=== PATIENT | male | born 1990 | race Caucasian/White ===

== ENCOUNTER 2016-06-28 10:01 | Emergency (ER) | payer SELFPAY ==
[~2016-06-28] VITALS: Ht 182.9 cm; Wt 104.3 kg
[2016-06-28] MEDS ORDERED: NS IV 1000 ML 1,000 ML IV ONE (10:19)
[2016-06-28] MEDS ORDERED: ONDANSETRON 4 MG/2 ML (SDV) Z0FRAN IVP ONE ×2 (10:30→12:30)
[2016-06-28] MEDS ORDERED: KETOROLAC 30 MG/ML VIAL IVP ONE (10:30)
[2016-06-28 10:49] LABS: BASOPHILS % (AUTO) 0 % (0-10); EOSINOPHILS # (AUTO) 0.3 10^3/uL (0.0-0.3); EOSINOPHILS % (AUTO) 3 % (0-10); LYMPHOCYTES # (AUTO) 2.7 X 10^3 (1.0-4.0); LYMPHOCYTES % (AUTO) 28 % (12-44); MEAN CORPUSCULAR HEMOGLOBIN 31 PG (25-34); MEAN CORPUSCULAR HGB CONC 34 G/DL (32-36); MEAN CORPUSCULAR VOLUME 91 FL (80-99); MEAN PLATELET VOLUME 11.7 FL (7.4-10.4); MONOCYTES # (AUTO) 0.9 X 10^3 (0.0-1.0); MONOCYTES % (AUTO) 9 % (0-12); NEUTROPHILS # (AUTO) 5.9 X 10^3 (1.8-7.8); NEUTROPHILS % (AUTO) 60 % (42-75); PLATELET COUNT 251 10^3/uL (130-400); RED BLOOD COUNT 5.07 10^6/uL (4.35-5.85); RED CELL DISTRIBUTION WIDTH 12.9 % (10.0-14.5); WHITE BLOOD COUNT 9.8 10^3/uL (4.3-11.0)
--- NOTE | 2016-06-28 10:51 | ED Abdominal Pain ---
General Chief Complaint: Abdominal/GI Problems Stated Complaint: LEFT FLANK PAIN Nursing Triage Note: pt reports lower back pain that radiates to groin though testicles. Sepsis Screen: No Definite Risk Source of Information: Patient Exam Limitations: No Limitations History of Present Illness Time Seen By Provider: 10:03 Initial Comments This 26-year-old gentleman presents to the emergency room in distress due to left flank and back pain that radiates down through the left abdomen toward the testicle. This is accompanied by nausea, vomiting, and diaphoresis. Symptoms started shortly before presentation. Allergies and Home Medications Allergies Coded Allergies: No Known Drug Allergies (Unverified , 06/28/16) Home Medications No Active Prescriptions or Reported Meds Review of Systems Constitutional: see HPI, diaphoresis EENTM: No Symptoms Reported Respiratory: No Symptoms Reported Cardiovascular: No Symptoms Reported Gastrointestinal: See HPI Genitourinary: See HPI Musculoskeletal: no symptoms reported Skin: no symptoms reported Psychiatric/Neurological: No Symptoms Reported Endocrine: No Symptoms Reported Hematologic/Lymphatic: No Symptoms Reported Past Homevsm-Mvgqrc-Bjhvqa Hx Patient Social History Alcohol Use: Occasionally Uses Recreational Drug Use: Yes (THC) Smoking Status: Current Everyday Smoker Type Used: Cigarettes Recent Foreign Travel: No Contact w/Someone Who Travel: No Recent Infectious Disease Expo: No Recent Hopitalizations: No Seasonal Allergies Seasonal Allergies: No Surgeries HX Surgeries: Yes (axillary cyst resection) Surgeries: Testicular (torsion at a young age) Respiratory Hx Respiratory Disorders: No Cardiovascular Hx Cardiac Disorders: No Neurological Hx Neurological Disorders: No Reproductive System Hx Reproductive Disorders: No Genitourinary Hx Genitourinary Disorders: No Gastrointestinal Hx Gastrointestinal Disorders: No Musculoskeletal Hx Musculoskeletal Disorders: No Endocrine Hx Endocrine Disorders: No HEENT HX ENT Disorders: No Cancer Hx Cancer: No Psychosocial Hx Psychiatric Problems: No Integumentary HX Skin/Integumentary Disorder: No Blood Transfusions Hx Blood Disorders: No Physical Exam Vital Signs VS - Last 72 Hours, by Label 06/28/16 10:17 Temp 96.6 Pulse 55 Resp 22 B/P (MAP) 134/92 Pulse Ox 93 O2 Delivery Room Air Capillary Refill : Less Than 3 Seconds General Appearance: WD/WN, moderate distress HEENT: PERRL/EOMI, normal ENT inspection Respiratory: lungs clear, normal breath sounds, no respiratory distress, no accessory muscle use Cardiovascular: regular rate, rhythm, no edema, no murmur Gastrointestinal: normal bowel sounds, soft, tenderness (throughout the left abdomen) Extremities: normal inspection, no pedal edema Male: normal genitalia, no hernia, No erythema, inguinal tenderness (slight left tenderness without evidence of hernia), No testicular tenderness 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, no motor/sensory deficits, alert, normal mood/affect, oriented x 3 Skin: normal color, diaphoresis Progress/Results/Core Measures Results/Orders Lab Results Laboratory Tests Test 06/28/16 10:35 06/28/16 11:04 Range/Units White Blood Count 9.8 4.3-11.0 10^3/uL Red Blood Count 5.07 4.35-5.85 10^6/uL Hemoglobin 15.8 13.3-17.7 G/DL Hematocrit 46 40-54 % Mean Corpuscular Volume 91 80-99 FL Mean Corpuscular Hemoglobin 31 25-34 PG Mean Corpuscular Hemoglobin Concent 34 32-36 G/DL Red Cell Distribution Width 12.9 10.0-14.5 % Platelet Count 251 130-400 10^3/uL Mean Platelet Volume 11.7 H 7.4-10.4 FL Neutrophils (%) (Auto) 60 42-75 % Lymphocytes (%) (Auto) 28 12-44 % Monocytes (%) (Auto) 9 0-12 % Eosinophils (%) (Auto) 3 0-10 % Basophils (%) (Auto) 0 0-10 % Neutrophils # (Auto) 5.9 1.8-7.8 X 10^3 Lymphocytes # (Auto) 2.7 1.0-4.0 X 10^3 Monocytes # (Auto) 0.9 0.0-1.0 X 10^3 Eosinophils # (Auto) 0.3 0.0-0.3 10^3/uL Basophils # (Auto) 0.0 0.0-0.1 10^3/uL Sodium Level 142 135-145 MMOL/L Potassium Level 3.4 L 3.6-5.0 MMOL/L Chloride Level 111 H 98-107 MMOL/L Carbon Dioxide Level 18 L 21-32 MMOL/L Anion Gap 13 5-14 MMOL/L Blood Urea Nitrogen 12 7-18 MG/DL Creatinine 1.06 0.60-1.30 MG/DL Estimat Glomerular Filtration Rate > 60 BUN/Creatinine Ratio 11 Glucose Level 115 H 70-105 MG/DL Calcium Level 8.9 8.5-10.1 MG/DL Total Bilirubin 0.6 0.1-1.0 MG/DL Aspartate Amino Transf (AST/SGOT) 14 5-34 U/L Alanine Aminotransferase (ALT/SGPT) 14 0-55 U/L Alkaline Phosphatase 89 40-136 U/L Total Protein 6.6 6.4-8.2 G/DL Albumin 4.3 3.2-4.5 G/DL Lipase 24 8-78 U/L Urine Color MEHDI H Urine Clarity CLEAR Urine pH 6 5-9 Urine Specific [place] 1.025 H 1.016-1.022 Urine Protein 2+ H NEGATIVE Urine Glucose (UA) NEGATIVE NEGATIVE Urine Ketones NEGATIVE NEGATIVE Urine Nitrite NEGATIVE NEGATIVE Urine Bilirubin NEGATIVE NEGATIVE Urine Urobilinogen NORMAL NORMAL MG/DL Urine Leukocyte Esterase 1+ H NEGATIVE Urine RBC (Auto) 5+ H NEGATIVE Urine RBC 50-100 H /HPF Urine WBC 0-2 /HPF Urine Squamous Epithelial Cells RARE /HPF Urine Crystals NONE /LPF Urine Bacteria NEGATIVE /HPF Urine Casts NONE /LPF Urine Mucus MODERATE H /LPF Urine Culture Indicated NO My Orders Orders - BETZAIDA ENGLISH MD Ua Culture If Indicated (06/28/16 10:03) Cbc With Automated Diff (06/28/16 10:19) Comprehensive Metabolic Panel (06/28/16 10:19) Lipase (06/28/16 10:19) Saline Lock/Iv-Start (06/28/16 10:19) Ns Iv 1000 Ml (Sodium Chloride 0.9%) (06/28/16 10:19) Ondansetron Injection (Zofran Injectio (06/28/16 10:30) Ketorolac Injection (Toradol Injection) (06/28/16 10:30) Ct Abd/Pelvis Wo(Kidney Stone) (06/28/16 11:27) Abdomen/Kub 1view (06/28/16 12:26) Fentanyl Injection (Sublimaze Injection (06/28/16 12:30) Oxycodone/Apap 5/325mg Tablet (Percocet (06/28/16 12:30) Ondansetron Injection (Zofran Injectio (06/28/16 12:30) Medications Given in ED Current Medications Medications Dose Ordered Sig/Mayo Route Start Time Stop Time Status Last Admin Dose Admin Fentanyl Citrate 50 mcg ONCE ONCE IVP 06/28/16 12:30 06/28/16 12:31 DC 06/28/16 12:31 50 MCG Ketorolac Tromethamine 30 mg ONCE ONCE IVP 06/28/16 10:30 06/28/16 10:31 DC 06/28/16 10:27 30 MG Ondansetron HCl 4 mg ONCE ONCE IVP 06/28/16 12:30 06/28/16 12:31 DC 06/28/16 12:31 4 MG Ondansetron HCl 8 mg ONCE ONCE IVP 06/28/16 10:30 06/28/16 10:31 DC 06/28/16 10:27 8 MG Oxycodone/ Acetaminophen 1 tab ONCE ONCE PO 06/28/16 12:30 06/28/16 12:31 DC 06/28/16 12:31 1 TAB Sodium Chloride 1,000 ml @ 0 mls/hr Q0M ONCE IV 06/28/16 10:19 06/28/16 10:22 DC 06/28/16 10:28 0 MLS/HR Vital Signs/I&O Vital Sign - Last 12Hours 06/28/16 10:17 Temp 96.6 Pulse 55 Resp 22 B/P (MAP) 134/92 Pulse Ox 93 O2 Delivery Room Air Blood Pressure Mean: 106 Progress Note #1: Time: 10:58 Progress Note Patient is feeling much better after Zofran 8 mg IV and Toradol 30 mg IV. IV fluids are infusing. UA is still pending. Further workup will be based on UA results. Progress Note #2: Time: 12:40 Progress Note Ureteral stone was identified in the left UVJ. Patient's pain began to rebound. Fentanyl and Percocet were administered for further pain management. Another dose of Zofran was also administered for rebound nausea. A strainer was dispensed for the patient and discharge instructions were discussed. Diagnostic Imaging Diagonstic Imaging: CT Plain Films/CT/US/NM/MRI: abdomen, pelvis Comments CT abdomen and pelvis viewed by me and report reviewed. See report below: NAME: PAUL CHINO [facility] REC#: [id number] PT STATUS: REG ER : 1990 PHYSICIAN: BETZAIDA ENGLISH MD ADMIT DATE: 06/28/16/ER Draft Date of Exam:06/28/16 CT ABD/PELVIS WO(KIDNEY STONE) PROCEDURE: CT urinary tract, rule out kidney stone. TECHNIQUE: Multiple contiguous axial images were obtained through the abdomen and pelvis without the use of intravenous contrast. INDICATION: Left flank pain since earlier in the morning. Radiation into the testicles. History of prior testicle surgery. CORRELATION STUDY: None FINDINGS: There is moderate left-sided hydroureteronephrosis. This appears be owing to a small 2 mm stone in the distal aspect left ureter, approximately 1 cm proximal to ureterovesical junction. There is presence of periureteric stranding. Left kidney slightly engorged. Additional nonobstructing left renal stones present. Right kidney and collecting system unremarkable. Unenhanced liver, gallbladder, pancreas, spleen and adrenal glands unremarkable. Abdominal aorta normal in contour. Gastrointestinal tract with mild severity fecal retention. No obstruction or inflammation. Appendix is slightly thickwalled but demonstrates no other additional inflammatory type changes. Urinary bladder is relatively decompressed. Calcification midline at prostate gland. Lung bases clear. IMPRESSION: 1. Moderate left-sided obstructive uropathy owing to an approximately 2 mm stone distal left ureter. Periureteric stranding also present possibility of superimposed urinary tract infection not excluded. Additional nonobstructing left renal stone is present. Dictated on workstation # [id number] Dict: 06/28/16 1210 Trans: 06/28/16 1221 [id number] Interpreted by: CARON MCNAMARA DO Departure Impression Impression: Primary Impression: Left ureteral stone Additional Impressions: Obstructive uropathy Nausea and vomiting Qualified Codes: R11.2 - Nausea with vomiting, unspecified Disposition: 01 HOME, SELF-CARE Condition: Improved Departure-Patient Inst. Decision time for Depature: 12:15 Referrals: NO,LOCAL PHYSICIAN (PCP/Family) Primary Care Physician Patient Instructions: Kidney Stones in Adults Add. Discharge Instructions: Drink plenty of clear liquids. You may use Zofran (ondansetron) as prescribed for nausea. Use Percocet as prescribed for pain. Do not drive or operate machinery on Percocet. Follow-up with your primary care provider soon as possible. Strain your urine and bring any stones collected to your follow-up appointment. Return to emergency room if symptoms worsen, especially if you develop fever. All discharge instructions reviewed with patient and/or family. Voiced understanding. Scripts Ondansetron (Zofran Odt) 4 Mg Tab.rapdis 4 MG PO Q4H Y for NAUSEA-1ST LINE, #10 TAB 1 Refill Prov: BETZAIDA ENGLISH MD 06/28/16 Oxycodone HCl/Acetaminophen (Percocet 5-325 mg Tablet) 1 Each Tablet 1-2 EACH PO Q6H Y for PAIN, #14 TAB Prov: BETZAIDA ENGLISH MD 06/28/16 BETZAIDA ENGLISH MD Jun 28, 2016 10:50
[2016-06-28 11:08] LABS: ALANINE AMINOTRANSFERASE 14 U/L (0-55); ALBUMIN 4.3 G/DL (3.2-4.5); ANION GAP 13 MMOL/L (5-14); ASPARTATE AMINO TRANSFERASE 14 U/L (5-34); BILIRUBIN,TOTAL 0.6 MG/DL (0.1-1.0); BLOOD UREA NITROGEN 12 MG/DL (7-18); BUN/CREATININE RATIO 11; CALCIUM 8.9 MG/DL (8.5-10.1); CARBON DIOXIDE 18 MMOL/L (21-32); CHLORIDE 111 MMOL/L (98-107); CREATININE SERUM 1.06 MG/DL (0.60-1.30); GFR ESTIMATED > 60; GLUCOSE 115 MG/DL (70-105); LIPASE 24 U/L (8-78); POTASSIUM 3.4 MMOL/L (3.6-5.0); SODIUM 142 MMOL/L (135-145); TOTAL PROTEIN 6.6 G/DL (6.4-8.2)
[2016-06-28 11:11] LABS: BILIRUBIN,URINE NEGATIVE (NEGATIVE); KETONES,URINE NEGATIVE (NEGATIVE); LEUKOCYTE ESTERASE ,URINE 1+ (NEGATIVE); NITRITE,URINE NEGATIVE (NEGATIVE); PH,URINE 6 (5-9); PROTEIN,URINE 2+ (NEGATIVE); UROBILINOGEN,URINE NORMAL (NORMAL)
[2016-06-28 11:20] LABS: SQUAMOUS EPITHELIAL CELL,UR RARE /HPF; WBC,URINE 0-2 /HPF
--- NOTE | 2016-06-28 12:21 | Diagnostic Imaging Report ---
PROCEDURE: CT urinary tract, rule out kidney stone. TECHNIQUE: Multiple contiguous axial images were obtained through the abdomen and pelvis without the use of intravenous contrast. INDICATION: Left flank pain since earlier in the morning. Radiation into the testicles. History of prior testicle surgery. CORRELATION STUDY: None FINDINGS: There is moderate left-sided hydroureteronephrosis. This appears be owing to a small 2 mm stone in the distal aspect left ureter, approximately 1 cm proximal to ureterovesical junction. There is presence of periureteric stranding. Left kidney slightly engorged. Additional nonobstructing left renal stones present. Right kidney and collecting system unremarkable. Unenhanced liver, gallbladder, pancreas, spleen and adrenal glands unremarkable. Abdominal aorta normal in contour. Gastrointestinal tract with mild severity fecal retention. No obstruction or inflammation. Appendix is slightly thickwalled but demonstrates no other additional inflammatory type changes. Urinary bladder is relatively decompressed. Calcification midline at prostate gland. Lung bases clear. IMPRESSION: 1. Moderate left-sided obstructive uropathy owing to an approximately 2 mm stone distal left ureter. Periureteric stranding also present possibility of superimposed urinary tract infection not excluded. Additional nonobstructing left renal stone is present. Dictated by: Dictated on workstation # [id number]
[2016-06-28] MEDS ORDERED: oxyCODONE/APAP 5/325MG (PERCOCET 5) TABLET PO ONE (12:30)
[2016-06-28] MEDS ORDERED: fentaNYL INJECTION 100 MCG/2 ML AMP IVP ONE (12:30)
[2016-06-28] MEDS ORDERED: OXYC-197 PO (12:40)
[2016-06-28] MEDS ORDERED: ONDA4TAB8 PO (12:40)
[2016-06-28 12:49] VITALS: BP 124/99
--- NOTE | 2016-06-28 13:11 | Diagnostic Imaging Report ---
INDICATION: Nephrolithiasis. TECHNIQUE: Single supine view of the abdomen 12:56 PM. CORRELATION STUDY: Renal colic CT 06/28/2016. FINDINGS: The patient's known small distal left ureteral stone cannot be well appreciated on radiograph imaging. Tiny densities over the midline lower pelvis likely reflective of prostate calcifications. There is mild/ moderate severity fecal retention. No bowel obstruction. Spina bifida occulta defect at the S1 level. Mild leftward curvature of the lumbar spine. IMPRESSION: The known distal left ureteral stone cannot be well appreciated on radiograph of the abdomen. Dictated by: Dictated on workstation # [id number]
--- OUTSIDE RECORDS SUMMARY | 2016-07-30 16:55 | XMS REPORT | Continuity of Care Document ---
Author Author [facility] Address Unknown Phone Unavailable Allergies Medications Problems Date Dx Coded Attending Type Code Diagnosis Diagnosed By 02/05/2014 AMBER SOLIS MD 465.9 UPPER RESPIRATORY INFECTION 02/05/2014 AMBER SOLIS MD V04.81 FLU SHOT Procedures Code Description [place] [id number] OXIM[employer]RY 2013 Results Encounters ACCT No. Visit Date/Time Discharge Status Pt. Type Provider Facility Loc./Unit Complaint [id number] 02/05/2014 13:56:00 02/05/2014 23: 59:59 CLS Outpatient AMBER SOLIS MD
== END 2016-06-28 12:49 | disposition home or self-care (01) ==
LOC: ER 10:04
DX: N13.2 Hydronephrosis with renal and ureteral calculous obstruction (principal); R11.2 Nausea with vomiting, unspecified; F17.210 Nicotine dependence, cigarettes, uncomplicated
CPT/HCPCS: 36415; 74000; 74176; 80053; 81000; 83690; 85025; 96361; 96374; 96375; 96376

== ENCOUNTER 2016-06-30 13:29 | Emergency (ER) | payer SELFPAY ==
[~2016-06-30] VITALS: Ht 182.9 cm; Wt 104.3 kg
[~2016-06-30 13:29] MED LIST: ONDA4TAB8 PO; OXYC-197 PO
[2016-06-30] MEDS ORDERED: NS IV 1000 ML 1,000 ML IV SCH (14:15)
[2016-06-30 14:56] LABS: BILIRUBIN,URINE NEGATIVE (NEGATIVE); KETONES,URINE 2+ (NEGATIVE); LEUKOCYTE ESTERASE ,URINE 2+ (NEGATIVE); NITRITE,URINE NEGATIVE (NEGATIVE); PH,URINE 6.5 (5-9); PROTEIN,URINE NEGATIVE (NEGATIVE); UROBILINOGEN,URINE NORMAL (NORMAL)
[2016-06-30 15:00] LABS: WBC,URINE 50-100 /HPF
[2016-06-30 15:01] LABS: SQUAMOUS EPITHELIAL CELL,UR RARE /HPF
--- NOTE | 2016-06-30 15:03 | ED Back Pain ---
General Chief Complaint: Back Problems Stated Complaint: LEFT FLANK PAIN Nursing Triage Note: Ambulatory to ED 8 with reports of persistent left flank pain since being seen for kidney stones on Sunday. Patient reports that his pain medicine is not working. Nursing Sepsis Screen: No Definite Risk Source of Information: Patient Exam Limitations: No Limitations History of Present Illness Time Seen by Provider: 15:00 Initial Comments The patient is a 26-year-old white male who was here 2 days ago and discovered to have a 2 mm stone at the left UVJ. He brought material from his strainer which is not clearly stone. He has not been without pain in the 2 days. He has now developed nausea. His ramp agent also notes that there was history given to them that there was a larger stone in the kidney area on the CT scan. He denies fever or chills. Timing/Duration: 2-3 Days Pain/Injury Location: Back (flank on left) Allergies and Home Medications Allergies Coded Allergies: No Known Drug Allergies (Unverified , 06/28/16) Home Medications Ondansetron 4 Mg Tab.rapdis, 4 MG PO Q4H PRN for NAUSEA-1ST LINE, #10 Ref 1 Prescribed by: BETZAIDA MILLS on 06/28/16 1240 Oxycodone HCl/Acetaminophen 1 Each Tablet, 1-2 EACH PO Q6H PRN for PAIN, #14 Prescribed by: BETZAIDA MILLS on 06/28/16 1240 Constitutional: see HPI EENTM: no symptoms reported Respiratory: no symptoms reported Cardiovascular: no symptoms reported Gastrointestinal: no symptoms reported Genitourinary: no symptoms reported Musculoskeletal: no symptoms reported Skin: no symptoms reported Psychiatric/Neurological: No Symptoms Reported Past Rccxqfd-Qgvyde-Tufgrt Hx Patient Social History Alcohol Use: Occasionally Uses Recreational Drug Use: Yes (Marijuana) Smoking Status: Current Everyday Smoker Type Used: Cigarettes 2nd Hand Smoke Exposure: Yes Recent Foreign Travel: No Contact w/Someone Who Travel: No Recent Infectious Disease Expo: No Recent Hopitalizations: No Immunizations Up To Date Tetanus Booster (TDap): Less than 5yrs Seasonal Allergies Seasonal Allergies: No Surgeries HX Surgeries: Yes (axillary cyst resection) Surgeries: Testicular Respiratory Hx Respiratory Disorders: No Cardiovascular Hx Cardiac Disorders: No Neurological Hx Neurological Disorders: No Reproductive System Hx Reproductive Disorders: No Genitourinary Hx Genitourinary Disorders: Yes Genitourinary Disorders: Kidney Stones Gastrointestinal Hx Gastrointestinal Disorders: No Musculoskeletal Hx Musculoskeletal Disorders: No Endocrine Hx Endocrine Disorders: No HEENT HX ENT Disorders: No Cancer Hx Cancer: No Psychosocial Hx Psychiatric Problems: No Integumentary HX Skin/Integumentary Disorder: No Blood Transfusions Hx Blood Disorders: No Physical Exam Vital Signs Vital Sign - Last 12Hours 06/30/16 13:52 Temp 98.2 Pulse 52 Resp 16 B/P (MAP) 150/106 Pulse Ox 97 O2 Delivery Room Air Capillary Refill : Less Than 3 Seconds General Appearance: Mild Distress, Moderate Distress HEENT: Normal ENT Inspection Neck: Normal Inspection Cardiovascular: Regular Rate, Rhythm, No Edema, No Gallop, No JVD, No Murmur, Normal Peripheral Pulses Gastrointestinal: Normal Bowel Sounds, No Organomegaly, No Pulsatile Mass, Non Tender, Soft Back: CVA Tenderness (L) Progress/Results/Core Measures Results/Orders Lab Results Laboratory Tests Test 06/30/16 14:45 Range/Units Urine Color YELLOW Urine Clarity CLEAR Urine pH 6.5 5-9 Urine Specific [place] 1.010 L 1.016-1.022 Urine Protein NEGATIVE NEGATIVE Urine Glucose (UA) NEGATIVE NEGATIVE Urine Ketones 2+ H NEGATIVE Urine Nitrite NEGATIVE NEGATIVE Urine Bilirubin NEGATIVE NEGATIVE Urine Urobilinogen NORMAL NORMAL MG/DL Urine Leukocyte Esterase 2+ H NEGATIVE Urine RBC (Auto) 5+ H NEGATIVE Urine RBC 5-10 H /HPF Urine WBC 50-100 H /HPF Urine Squamous Epithelial Cells RARE /HPF Urine Crystals NONE /LPF Urine Bacteria FEW H /HPF Urine Casts NONE /LPF Urine Mucus SMALL H /LPF Urine Culture Indicated YES My Orders Orders - BETTY GERBER MD Ua Culture If Indicated (06/30/16 14:03) Ns Iv 1000 Ml (Sodium Chloride 0.9%) (06/30/16 14:15) Urine Culture (06/30/16 14:45) Ct Abd/Pelvis Wo(Kidney Stone) (06/30/16 15:07) Vital Signs/I&O Vital Sign - Last 12Hours 06/30/16 13:52 Temp 98.2 Pulse 52 Resp 16 B/P (MAP) 150/106 Pulse Ox 97 O2 Delivery Room Air Blood Pressure Mean: 121 Departure Communication Progress Notes Repeat CT shows that the 2 mm stone previously described on the fifth does not appear to have moved from its position at the UV junction. There is a degree of hydroureter which remains as well. This is my interpretation. In addition the UA is consistent with urinary tract infection. I discussed this by phone with Dr. Solorio. He recommended Rocephin here and antibiotics to cover him for the weekend. Flomax was also recommended. Impression Impression: Primary Impression: obstructive stone left UVJ junction Additional Impression: urinary tract infection Disposition: HOME, SELF-CARE Condition: Stable/Unchanged (ERASED) Departure-Patient Inst. Decision time for Depature: 16:14 Referrals: NO,LOCAL PHYSICIAN (PCP) Primary Care Physician Add. Discharge Instructions: All discharge instructions reviewed with patient and/or family. Voiced understanding. Take Omnicef as directed Take Percocet as directed Take Flomax as directed Lots of fluids Walking may be of use Call Dr. Castellon's office [phone] Sunday morning for follow-up Scripts Tamsulosin HCl (Flomax) 0.4 Mg Cap 0.4 MG PO TWICE A DAY for 6 Days, #6 CAP Prov: BETTY GERBER MD 06/30/16 Cefdinir (Cefdinir) 300 Mg Capsule 300 MG PO TWICE A DAY, #10 CAP Prov: BETTY GERBER MD 06/30/16 Oxycodone HCl/Acetaminophen (Percocet 10-325 mg Tablet) 1 Each Tablet 1 EACH PO EVERY 4 HOURS, #20 TAB Prov: BETTY GERBER MD 06/30/16 BETTY GERBER MD Jun 30, 2016 15:03
--- NOTE | 2016-06-30 15:57 | Diagnostic Imaging Report ---
PROCEDURE: CT urinary tract, rule out kidney stone. TECHNIQUE: Multiple contiguous axial images were obtained through the abdomen and pelvis without the use of intravenous contrast. Indication: Left flank pain for two days. Comparison: 06/28/2016. Discussion: The visualized lung bases are unremarkable. Normal heart size. No pleural or pericardial fluid. The gallbladder, liver, pancreas, stomach, spleen, and adrenal glands are unremarkable. 2 mm nonobstructing left renal calculus is stable. Mild left hydronephrosis and hydroureter is stable. 2 mm stone within the left ureterovesical junction is stable. Prostate is normal in size. The right kidney is unremarkable. The appendix is normal. The large and small bowel loops appear within normal limits. There is no ascites or pathologically enlarged lymph nodes identified. No acute osseous abnormality identified. Impression: 1. 2 mm stone within the left ureterovesical junction contributing to mild left hydronephrosis, stable. Additional punctate nonobstructing left renal calculi, stable. Dictated by: Dictated on workstation # [id number]
[2016-06-30] MEDS ORDERED: TAMS0.4C98 PO (16:23)
[2016-06-30] MEDS ORDERED: CEFD300C3 PO (16:23)
[2016-06-30] MEDS ORDERED: OXYC-202 PO (16:23)
[2016-06-30] MEDS ORDERED: cefTRIAXone 1 GM (ROCEPHIN) VIAL IM ONE (16:30)
[2016-06-30] MEDS ORDERED: LIDOCAINE 1% INJ 20 ML (XYLOCAINE) VIAL INJ ONE (16:30)
[2016-06-30] MEDS ORDERED: cefTRIAXone 1 GM (ROCEPHIN) VIAL ONE (16:34)
[2016-06-30] MEDS ORDERED: NS (IVPB) 50 ML ONE (16:34)
[2016-06-30] MEDS ORDERED: cefTRIAXone INJECTION 1,000 MG in NS (IVPB) 50 ML IV ONE (16:45)
[2016-06-30 17:05] VITALS: BP 142/98
--- OUTSIDE RECORDS SUMMARY | 2016-08-03 22:08 | XMS REPORT | Continuity of Care Document ---
Author Author [facility] Address Unknown Phone Unavailable Allergies Medications Problems Date Dx Coded Attending Type Code Diagnosis Diagnosed By 02/05/2014 AMBER SOLIS MD 465.9 UPPER RESPIRATORY INFECTION 02/05/2014 AMBER SOLIS MD V04.81 FLU SHOT Procedures Code Description [place] [address] OXIMETRY 2013 Results Encounters ACCT No. Visit Date/Time Discharge Status Pt. Type Provider Facility Loc./Unit Complaint [id number] 02/05/2014 13:56:00 02/05/2014 23: 59:59 CLS Outpatient AMBER SOLIS MD
== END 2016-06-30 17:05 | disposition home or self-care (01) ==
LOC: EDUNIT# 13:29 → ER 13:30
DX: N20.2 Calculus of kidney with calculus of ureter (principal); N30.91 Cystitis, unspecified with hematuria; F17.210 Nicotine dependence, cigarettes, uncomplicated
CPT/HCPCS: 74176; 81000; 87088; 96361; 96365

== ENCOUNTER 2016-07-05 11:40 | Emergency (ER) | payer SELFPAY ==
[~2016-07-05] VITALS: Ht 182.9 cm; Wt 102.1 kg
[~2016-07-05 11:40] MED LIST changes: +CEFD300C3 PO; +OXYC-202 PO; +TAMS0.4C98 PO
[2016-07-05] MEDS ORDERED: LACTATED RINGERS 1,000 ML IV ONE (12:02)
[2016-07-05] MEDS ORDERED: KETOROLAC 30 MG/ML VIAL IVP STA (12:02)
[2016-07-05] MEDS ORDERED: ORPHENADRINE 60 MG/2 ML (NORFLEX) AMP IVP ONE (12:15)
[2016-07-05 12:36] LABS: BASOPHILS % (AUTO) 0 % (0-10); EOSINOPHILS # (AUTO) 0.2 10^3/uL (0.0-0.3); EOSINOPHILS % (AUTO) 2 % (0-10); LYMPHOCYTES # (AUTO) 1.2 X 10^3 (1.0-4.0); LYMPHOCYTES % (AUTO) 13 % (12-44); MEAN CORPUSCULAR HEMOGLOBIN 30 PG (25-34); MEAN CORPUSCULAR HGB CONC 34 G/DL (32-36); MEAN CORPUSCULAR VOLUME 90 FL (80-99); MEAN PLATELET VOLUME 11.8 FL (7.4-10.4); MONOCYTES % (AUTO) 11 % (0-12); NEUTROPHILS # (AUTO) 7.1 X 10^3 (1.8-7.8); NEUTROPHILS % (AUTO) 74 % (42-75); PLATELET COUNT 238 10^3/uL (130-400); RED BLOOD COUNT 5.33 10^6/uL (4.35-5.85); RED CELL DISTRIBUTION WIDTH 12.7 % (10.0-14.5); WHITE BLOOD COUNT 9.6 10^3/uL (4.3-11.0)
[2016-07-05 12:54] LABS: ALANINE AMINOTRANSFERASE 12 U/L (0-55); ALBUMIN 4.6 G/DL (3.2-4.5); AMYLASE 29 U/L (25-125); ANION GAP 14 MMOL/L (5-14); ASPARTATE AMINO TRANSFERASE 14 U/L (5-34); BILIRUBIN,TOTAL 0.7 MG/DL (0.1-1.0); BLOOD UREA NITROGEN 12 MG/DL (7-18); BUN/CREATININE RATIO 8; CALCIUM 9.6 MG/DL (8.5-10.1); CARBON DIOXIDE 21 MMOL/L (21-32); CHLORIDE 103 MMOL/L (98-107); CREATININE SERUM 1.42 MG/DL (0.60-1.30); GFR ESTIMATED > 60; GLUCOSE 98 MG/DL (70-105); LIPASE 6 U/L (8-78); SODIUM 138 MMOL/L (135-145); TOTAL PROTEIN 7.4 G/DL (6.4-8.2)
--- NOTE | 2016-07-05 12:55 | Diagnostic Imaging Report ---
INDICATION: History of renal calculi. UTI. COMPARISON: CT dated 07/01/2015. FINDINGS: Two supine radiographic views of the abdomen were obtained. The small bowel loops are nondistended. There is no large collection of free intraperitoneal air although evaluation is suboptimal secondary to the supine technique. No unexpected radiopaque foreign bodies or extraosseous calcifications are identified. The bony structures show no gross acute abnormalities. IMPRESSION: 1. Nondistended small bowel gas pattern. 2. No appreciable abnormal extraosseous calcifications. Please note, given the small size of the calculus seen on the previously performed CT, it may be inconspicuous on plain films. Dictated by: Dictated on workstation # [id number]
[2016-07-05 13:28] LABS: BILIRUBIN,URINE NEGATIVE (NEGATIVE); KETONES,URINE 4+ (NEGATIVE); LEUKOCYTE ESTERASE ,URINE 1+ (NEGATIVE); NITRITE,URINE NEGATIVE (NEGATIVE); PH,URINE 6 (5-9); PROTEIN,URINE 2+ (NEGATIVE); UROBILINOGEN,URINE NORMAL (NORMAL)
[2016-07-05 13:37] LABS: SQUAMOUS EPITHELIAL CELL,UR 0-2 /HPF
--- NOTE | 2016-07-05 13:52 | ED Abdominal Pain ---
General Chief Complaint: Abdominal/GI Problems Stated Complaint: LEFT FLANK PAIN Nursing Triage Note: PT CO OF L FLANK PAIN, PT HAS HAD KIDNEY STONE FOR A WEEK, STARTED FEELING SICK AGAIN AND HAVING PAIN YESTERDAY Sepsis Screen: No Definite Risk Source of Information: Patient, Old Records History of Present Illness Time Seen By Provider: 11:57 Initial Comments C/O LEFT FLANK PAIN X 1 WEEK HAS BEEN SEEN HERE 06/28 AND 06/30 AND DX WITH 2 MM LEFT DISTAL URETERAL STONE AT [facility], WITH MILD HYDRONEPHROSIS. HAD CT SCANS ON BOTH VISITS PT CONTINUES TO HAVE SEVERE LEFT FLANK PAIN AND NAUSEA AND VOMITING LAST VOMITED AT 0430 THIS AM IS KEEPING DOWN WATER NOW STATES HE FINISHED HIS FLOMAX AND ANTIBIOTIC NO PROBLEMS URINATING. DID HAVE SLIGHT BURNING ON URINATION LAST PM, BUT NOT TODAY PT WAS REFERRED TO DR. WEINER, AND PT HAS NOT BEEN ABLE TO FOLLOW UP DUE TO INABILITY TO AFFORD THE UPFRONT COST OF VISIT. HAS NOT FOLLOWED UP WITH ANYONE SINCE ER VISITS PCP: [facility] Allergies and Home Medications Allergies Coded Allergies: No Known Drug Allergies (Unverified , 06/28/16) Home Medications Ciprofloxacin HCl 500 Mg Tablet, 500 MG PO BID, #20 Prescribed by: BYRON LOMAX on 07/05/16 1355 Hydrocodone/Acetaminophen 1 Each Tablet, 1-2 EACH PO Q4H, #20 Prescribed by: BYRON LOMAX on 07/05/16 1355 Ketorolac Tromethamine 10 Mg Tablet, 10 MG PO Q6H, #15 Prescribed by: BYRON LOMAX on 07/05/16 1355 Ondansetron 4 Mg Tab.rapdis, 4 MG PO Q4H, #10 Prescribed by: BYRON LOMAX on 07/05/16 1355 Oxycodone HCl/Acetaminophen 1 Each Tablet, 1-2 EACH PO Q6H PRN for PAIN, #14 Prescribed by: BETZAIDA MILLS on 06/28/16 1240 Oxycodone HCl/Acetaminophen 1 Each Tablet, 1 EACH PO EVERY 4 HOURS, #20 Prescribed by: BETTY GERBER on 06/30/16 1623 Tamsulosin HCl 0.4 Mg Cap, 0.4 MG PO TWICE A DAY for 6 Days, #6 Prescribed by: BETTY GERBER on 06/30/16 1623 Tamsulosin HCl 0.4 Mg Cap, 0.4 MG PO DAILY, #10 Prescribed by: BYRON LOMAX on 07/05/16 2465 Review of Systems Constitutional: no symptoms reported, No fever Respiratory: No Symptoms Reported Cardiovascular: No Symptoms Reported Gastrointestinal: See HPI, Abdominal Pain (SUPRAPUBIC AND LLQ AND LEFT FLANK), Nausea, Vomiting Genitourinary: See HPI Musculoskeletal: see HPI, back pain Skin: no symptoms reported Psychiatric/Neurological: No Symptoms Reported Endocrine: No Symptoms Reported Hematologic/Lymphatic: No Symptoms Reported Past Hvorlad-Gpevjy-Efwdkf Hx Patient Social History Alcohol Use: Occasionally Uses Recreational Drug Use: Yes (THC IN PAST) Smoking Status: Current Everyday Smoker (1/2 PPD) Type Used: Cigarettes 2nd Hand Smoke Exposure: Yes Recent Foreign Travel: No Contact w/Someone Who Travel: No Recent Infectious Disease Expo: No Recent Hopitalizations: No Immunizations Up To Date Tetanus Booster (TDap): Less than 5yrs Seasonal Allergies Seasonal Allergies: No Surgeries HX Surgeries: Yes (LEFT TESTICULAR SURGERY AGE 13, AXILLARY CYST REMOVED AGE 16 ) Surgeries: Testicular Respiratory Hx Respiratory Disorders: No Cardiovascular Hx Cardiac Disorders: No Neurological Hx Neurological Disorders: No Reproductive System Hx Reproductive Disorders: No Genitourinary Hx Genitourinary Disorders: Yes Genitourinary Disorders: Kidney Stones Gastrointestinal Hx Gastrointestinal Disorders: No Musculoskeletal Hx Musculoskeletal Disorders: No Endocrine Hx Endocrine Disorders: No HEENT HX ENT Disorders: No Cancer Hx Cancer: No Psychosocial Hx Psychiatric Problems: No Integumentary HX Skin/Integumentary Disorder: No Blood Transfusions Hx Blood Disorders: No Physical Exam Vital Signs VS - Last 72 Hours, by Label 07/05/16 11:50 Temp 98.9 Pulse 82 Resp 18 B/P (MAP) 140/101 Pulse Ox 96 Capillary Refill : Less Than 3 Seconds General Appearance: WD/WN, no apparent distress Respiratory: normal breath sounds, no respiratory distress, no accessory muscle use Cardiovascular: regular rate, rhythm, no murmur Gastrointestinal: normal bowel sounds, soft, no organomegaly, no pulsatile mass , No distended, No guarding, No rebound, tenderness (MILD SUPRAPUBIC AND LLQ TENDERNESS) Extremities: normal inspection Back: CVA tenderness (L) (MODERATE) Neurologic/Psychiatric: binder coverstitch II-XII nml as tested, no motor/sensory deficits, alert, normal mood/affect, oriented x 3 Skin: normal color, warm/dry, No rash Progress/Results/Core Measures Results/Orders Lab Results Laboratory Tests Test 07/05/16 12:30 07/05/16 13:15 Range/Units White Blood Count 9.6 4.3-11.0 10^3/uL Red Blood Count 5.33 4.35-5.85 10^6/uL Hemoglobin 16.1 13.3-17.7 G/DL Hematocrit 48 40-54 % Mean Corpuscular Volume 90 80-99 FL Mean Corpuscular Hemoglobin 30 25-34 PG Mean Corpuscular Hemoglobin Concent 34 32-36 G/DL Red Cell Distribution Width 12.7 10.0-14.5 % Platelet Count 238 130-400 10^3/uL Mean Platelet Volume 11.8 H 7.4-10.4 FL Neutrophils (%) (Auto) 74 42-75 % Lymphocytes (%) (Auto) 13 12-44 % Monocytes (%) (Auto) 11 0-12 % Eosinophils (%) (Auto) 2 0-10 % Basophils (%) (Auto) 0 0-10 % Neutrophils # (Auto) 7.1 1.8-7.8 X 10^3 Lymphocytes # (Auto) 1.2 1.0-4.0 X 10^3 Monocytes # (Auto) 1.0 0.0-1.0 X 10^3 Eosinophils # (Auto) 0.2 0.0-0.3 10^3/uL Basophils # (Auto) 0.0 0.0-0.1 10^3/uL Sodium Level 138 135-145 MMOL/L Potassium Level 4.0 3.6-5.0 MMOL/L Chloride Level 103 98-107 MMOL/L Carbon Dioxide Level 21 21-32 MMOL/L Anion Gap 14 5-14 MMOL/L Blood Urea Nitrogen 12 7-18 MG/DL Creatinine 1.42 H 0.60-1.30 MG/DL Estimat Glomerular Filtration Rate > 60 BUN/Creatinine Ratio 8 Glucose Level 98 70-105 MG/DL Calcium Level 9.6 8.5-10.1 MG/DL Total Bilirubin 0.7 0.1-1.0 MG/DL Aspartate Amino Transf (AST/SGOT) 14 5-34 U/L Alanine Aminotransferase (ALT/SGPT) 12 0-55 U/L Alkaline Phosphatase 91 40-136 U/L Total Protein 7.4 6.4-8.2 G/DL Albumin 4.6 H 3.2-4.5 G/DL Amylase Level 29 25-125 U/L Lipase 6 L 8-78 U/L Urine Color YELLOW Urine Clarity CLEAR Urine pH 6 5-9 Urine Specific [place] 1.020 1.016-1.022 Urine Protein 2+ H NEGATIVE Urine Glucose (UA) NEGATIVE NEGATIVE Urine Ketones 4+ H NEGATIVE Urine Nitrite NEGATIVE NEGATIVE Urine Bilirubin NEGATIVE NEGATIVE Urine Urobilinogen NORMAL NORMAL MG/DL Urine Leukocyte Esterase 1+ H NEGATIVE Urine RBC (Auto) 1+ H NEGATIVE Urine RBC 2-5 H /HPF Urine WBC 10-25 H /HPF Urine Squamous Epithelial Cells 0-2 /HPF Urine Crystals NONE /LPF Urine Bacteria TRACE /HPF Urine Casts NONE /LPF Urine Mucus SMALL H /LPF Urine Culture Indicated YES My Orders Orders - BYRON LOMAX DO Amylase (07/05/16 12:01) Cbc With Automated Diff (07/05/16 12:01) Comprehensive Metabolic Panel (07/05/16 12:01) Lipase (07/05/16 12:01) Ua Culture If Indicated (07/05/16 12:01) Abdomen/Kub 1view (07/05/16 12:01) Ketorolac Injection (Toradol Injection) (07/05/16 12:02) Saline Lock/Iv-Start (07/05/16 12:02) Lactated Ringers (Lr 1000 Ml Iv Solution (07/05/16 12:02) Orphenadrine Injection (Norflex Injectio (07/05/16 12:15) Urine Culture (07/05/16 13:15) Medications Given in ED Current Medications Medications Dose Ordered Sig/Mayo Route Start Time Stop Time Status Last Admin Dose Admin Lactated Ringer's 1,000 ml @ 0 mls/hr Q0M ONCE IV 07/05/16 12:02 07/05/16 12:06 DC 07/05/16 12:24 1,000 MLS/HR Orphenadrine Citrate 60 mg ONCE ONCE IVP 07/05/16 12:15 07/05/16 12:16 DC 07/05/16 12:25 60 MG Vital Signs/I&O Vital Sign - Last 12Hours 07/05/16 11:50 Temp 98.9 Pulse 82 Resp 18 B/P (MAP) 140/101 Pulse Ox 96 Blood Pressure Mean: 114 Progress Note : Progress Note ALL SYMPTOMS COMPLETELY RESOLVED AT DISMISSAL Diagnostic Imaging Comments KUB--NO ACUTE PROCESS, PER RADIOLOGIST REPORT @ 1315 Reviewed: Reviewed by Me Departure Impression Impression: Primary Impression: Left ureteral calculus Additional Impression: Urinary tract infection Disposition: HOME, SELF-CARE Condition: Improved Departure-Patient Inst. Referrals: NO,LOCAL PHYSICIAN (PCP) Primary Care Physician MITCH WEINER MD Patient Instructions: Kidney Stones (DC), Renal Colic (DC), Urinary Tract Infection, Adult (DC) Add. Discharge Instructions: LOTS OF CLEAR LIQUIDS STRAIN ALL URINE--RETURN ANY STONES TO DR. WEINER'S OFFICE FOLLOW UP WITH DR. WEINER THIS WEEK FOR FURTHER CARE All discharge instructions reviewed with patient and/or family. Voiced understanding. Scripts Ondansetron (Zofran Odt) 4 Mg Tab.rapdis 4 MG PO Q4H for Nausea/Vomiting, #10 TAB Prov: BYRON LOMAX DO 07/05/16 Ketorolac Tromethamine (Ketorolac Tromethamine) 10 Mg Tablet 10 MG PO Q6H for Pain, #15 TAB Prov: BYRON LOMAX K DO 07/05/16 Hydrocodone/Acetaminophen (Hydrocodon-Acetaminoph 7.5-325) 1 Each Tablet 1-2 EACH PO Q4H for Pain, #20 TAB Prov: BYRON LOMAX K 07/05/16 Tamsulosin HCl (Flomax) 0.4 Mg Cap 0.4 MG PO DAILY, #10 CAP Prov: BYRON LOMAX DO 07/05/16 Ciprofloxacin HCl (Cipro) 500 Mg Tablet 500 MG PO BID, #20 TAB Prov: JHOANA LOMAXA K 07/05/16 JHOANA LOMAXA K Jul 05, 2016 13:52
[2016-07-05] MEDS ORDERED: CIPR-225 PO (13:55)
[2016-07-05] MEDS ORDERED: TAMS0.4C98 PO (13:55)
[2016-07-05] MEDS ORDERED: ONDA4TAB8 PO (13:55)
[2016-07-05] MEDS ORDERED: KETO10TA PO (13:55)
[2016-07-05] MEDS ORDERED: HYDR-3816 PO (13:55)
[2016-07-05 14:06] VITALS: BP 136/88
== END 2016-07-05 14:06 | disposition home or self-care (01) ==
LOC: EDUNIT# 11:40 → ER 11:42
DX: N20.1 Calculus of ureter (principal); N39.0 Urinary tract infection, site not specified; F17.210 Nicotine dependence, cigarettes, uncomplicated; R11.2 Nausea with vomiting, unspecified
CPT/HCPCS: 36415; 74000; 80053; 81000; 82150; 83690; 85025; 87088; 96361; 96374; 96375